=== PATIENT | male | born 2000 | race Caucasian/White ===

== ENCOUNTER 2021-12-23 17:43 | Emergency (ER) | payer BC, SELFPAY ==
[2021-12-23 18:39] VITALS: BP 123/66; PULSE 79; RESP 16; TEMP 36.8; O2SAT 99
--- NOTE | 2021-12-23 20:34 | ED.GENADULT ---
HPI - General Adult General Chief complaint: Urogenital-Male Stated complaint: nerve issues in right hip area Time Seen by Provider: 12/23/21 20:23 History of Present Illness HPI narrative: 21-year-old male presents emergency room secondary to some pain to the right groin area. He states he was going to work this morning and driving his truck when he had a pain into the right upper medial thigh region. This seemed to subside but he continues to have intermittent spasm and pain in that area. Also has some pain that radiates around to the perineal region he feels like is almost muscular which is spasms. Never anything like this before. He works installing floors. No urethral discharge. No tenderness to his testicles. No history of DVT. No swelling to the leg. Related Data Allergies Allergy/AdvReac Type Severity Reaction Status Date / Time amoxicillin Allergy Mild Unverified 09/30/11 13:59 erythromycin base Allergy Mild Unverified 09/30/11 13:59 Penicillins Allergy Mild Unverified 09/30/11 13:59 POTASSIUM CLAVULANATE Allergy Mild Uncoded 09/30/11 13:59 Review of Systems Review of Systems: CONSTITUTIONAL: Denies fever, chills, or sweats. EYES: Denies visual changes, redness, or discharge. ENT: Denies rhinorrhea, congestion, sore throat, or otalgia. CARDIOVASCULAR: Denies chest pain, palpitations, or edema. RESPIRATORY: Denies cough or dyspnea. GASTROINTESTINAL: Denies abdominal pain, nausea, vomiting, or diarrhea. GENITOURINARY: Denies dysuria or hematuria. SKIN: Denies rash or itching. MUSCULOSKELETAL: Denies back pain, joint pain, or myalgia. Pain to the right groin is noted. NEUROLOGIC: Denies headache, numbness, or weakness. PSYCHIATRIC: Denies anxiety or depression. PMFSH Past Medical History Medical History (Updated 12/23/21 @ 20:35 by Vicente Alicia DO) No pertinent past medical history Social History Social History (Updated 12/23/21 @ 20:36 by Vicente Alicia DO) Occupation/Education: occupation Additional occupation/education comments: Works installing floors Exam Narrative: APPEARANCE: Well appearing, no pain or distress, well-nourished. Head Normocephalic and atraumatic. EYES: PERRLA/EOMI, conjunctivae clear. NOSE: Normal with no drainage EARS:TMS clear with [place], with good light reflex. THROAT: Pharynx clear, no exudate. NECK: Supple. No adenopathy, no masses. RESPIRATORY: Airway patent, respirations nonlabored. Clear to auscultation bilaterally, no rales, rhonchi, wheezing. CARDIOVASCULAR: Regular rate and rhythm without murmurs, rubs, or gallops. ABDOMINAL: Soft, nontender, nondistended, no hepatosplenomegaly Musculoskeletal: Moves all extremities. Strength/ROM intact, No edema, No calf tenderness. Some tenderness to palpation to the muscles in the right upper medial thigh region. NEURO: Alert. Cranial nerves II through XII intact. Normal gait. Good coordination. Nonfocal examination. SKIN:: Warm, dry. Normal Color PSYCHIATRIC: Normal affect/mood, normal interaction GENITAL: Testicles descended and nontender. No discharge from his penis. Course Vital Signs Vital signs: Vital Signs Temperature 98.3 F 12/23/21 18:39 Pulse Rate 79 12/23/21 18:39 Respiratory Rate 16 12/23/21 18:39 Blood Pressure 123/66 12/23/21 18:39 Pulse Oximetry 99 12/23/21 18:39 Temperature 98.3 F 12/23/21 18:39 Pulse Rate 79 12/23/21 18:39 Respiratory Rate 16 12/23/21 18:39 Blood Pressure 123/66 12/23/21 18:39 Pulse Oximetry 99 12/23/21 18:39 Medical Decision Making MDM Narrative Medical decision making narrative: Presentation is indicative of a right groin strain. Put on some nonsteroidal anti-inflammatory medications and also some muscle relaxant to see if it will help. Also advised him to put some heat to the area. Vital Signs Vital Signs: Vital Signs Temperature 98.3 F 12/23/21 18:39 Pulse Rate 79 12/23/21 18:39 Respiratory Rate 16 12/23/21 18:39 Blo
[2021-12-23 20:37] VITALS: BP 121/72; PULSE 63; RESP 18; O2SAT 99
== END 2021-12-23 20:48 | disposition home or self-care (01) ==
PROVIDERS: Emergency Provider Emergency Medicine
DX: S39.011A Strain of muscle, fascia and tendon of abdomen, initial encounter (principal); X58.XXXA Exposure to other specified factors, initial encounter
CPT/HCPCS: 99283